=== PATIENT | male | born 1985 | race Caucasian/White ===

== ENCOUNTER 2020-12-18 09:15 | Outpatient (RCR) | payer BC, SELFPAY ==
[2020-11-04 12:44] VITALS: BMI 22.5
[2020-11-04 12:45] VITALS: BMI 22.5
== END 2021-01-19 14:40 | disposition home or self-care (01) ==
LOC: ANHDMC 09:15
PROVIDERS: PCP Nurse Practitioner Adult Health; Visit Provider Nurse Practitioner Adult Health
DX: E11.9 Type 2 diabetes mellitus without complications (principal); Z71.3 Dietary counseling and surveillance; Z71.89 Other specified counseling
CPT/HCPCS: 97802; 99283; G0108

== ENCOUNTER 2021-05-05 14:15 | Outpatient (RCR) | payer BC, SELFPAY | END 2021-05-11 11:57 | disposition home or self-care (01) | LOC: ANHDMC 14:15 | PROVIDERS: PCP Nurse Practitioner Adult Health; Visit Provider Nurse Practitioner Adult Health | DX: E11.9 Type 2 diabetes mellitus without complications (principal); Z71.89 Other specified counseling | CPT/HCPCS: G0108 ==

== ENCOUNTER 2021-06-25 14:16 | Outpatient (RCR) | payer BC, SELFPAY | END 2021-06-26 08:57 | disposition home or self-care (01) | LOC: ANHDMC 14:16 | PROVIDERS: PCP Nurse Practitioner Adult Health; Visit Provider Nurse Practitioner Adult Health | DX: E11.9 Type 2 diabetes mellitus without complications (principal); Z71.89 Other specified counseling | CPT/HCPCS: G0108 ==

== ENCOUNTER 2023-06-01 08:07 | Outpatient (CLI) | payer BC, SELFPAY ==
[2023-06-01 19:34] LABS: Creatinine Urine 102.4 mg/dL
[2023-06-01 19:36] LABS: MALB Creatinine Ratio 7.6 mg/g (0-30); Microalbumin Urine Random 7.8 mg/L (0-16.7)
[2023-06-01 19:52] LABS: Alanine Aminotransferase 27 U/L (6-50); Albumin Level 4.4 g/dL (3.5-5.1); Alkaline Phosphatase 51 U/L (38-126); Anion Gap 10 mmol/L (8-16); Aspartate Amino Transferase 42 U/L (17-59); Bilirubin,Total 1.1 mg/dL (0.2-1.3); Blood Urea Nitrogen 18 mg/dL (9-20); Calcium 9.7 mg/dL (8.4-10.2); Carbon Dioxide 26 mmol/L (22-30); Chloride 101 mmol/L (98-107); Cholesterol 155 mg/dL (0-200); Estimated Glomerular Filt Rate > 60; Glucose 68 mg/dL (65-110); HDL Direct 40 mg/dL; Potassium 4.3 mmol/L (3.4-5.0); Sodium 137 mmol/L (137-145); Triglycerides 47 mg/dL (<150)
[2023-06-01 20:03] LABS: LDL Cholesterol Direct 100 mg/dL
[2023-06-01 20:13] LABS: Hemoglobin A1C 5.3 % (<5.7)
== END 2023-06-01 08:08 | disposition home or self-care (01) ==
LOC: ANHGOSHLAB 08:08
PROVIDERS: PCP Family Medicine; Visit Provider Family Medicine
DX: E11.9 Type 2 diabetes mellitus without complications (principal); Z13.220 Encounter for screening for lipoid disorders; Z13.228 Encounter for screening for other metabolic disorders
CPT/HCPCS: 36415; 80053; 80061; 82043; 83036

== ENCOUNTER 2025-06-14 16:28 | Emergency (ER) | payer OTHER, SELFPAY ==
--- NOTE | ~2025-06-14 | XR_ITS ---
XR foot RT min 3V 06/14/2025 17:05 INDICATION: Right foot pain PROCEDURE: 4 views right foot COMPARISON: No prior studies for comparison. FINDINGS: Fracture, dislocation or subluxation is not identified. The soft tissues appear within normal limits. No foreign bodies are identified. IMPRESSION: 1: NO ACUTE BONE OR JOINT ABNORMALITY IDENTIFIED. Reviewed, dictated and finalized at location O.
[2025-06-14 16:45] VITALS: BP 132/94; PULSE 71; RESP 16; TEMP 36.5; O2SAT 100
--- NOTE | 2025-06-14 17:26 | ED.LOWEXIN ---
HPI - Extremity Injury (Lower) General Chief Complaint: Extremity Injury, Lower Stated Complaint: R FOOT PAIN Time Seen by Provider: 06/14/25 17:15 Source: patient and RN notes reviewed Mode of arrival: ambulatory Limitations: no limitations History of Present Illness HPI Narrative: 40-year-old male Presents Express Care complaining of right foot pain last 2 weeks. Patient denies any apparent injury. Patient says he has been running frequently over the last 3 years. Patient says he is currently training for a marathon. Patient denies any change in shoes. Patient states the pain is primarily on his heel and occurs when he is running or bearing weight to his right foot. Patient's has been taking Tylenol or ibuprofen with some relief. Patient denies any numbness, tingling or any other injuries. Patient denies any significant past medical history. Related Data Home Medications ?Medication ?Instructions ?Recorded ?Confirmed ?Last Taken ?Type metformin 500 mg tablet 500 mg PO DAILY 05/30/23 05/30/23 Unknown History Allergies Allergy/AdvReac Type Severity Reaction Status Date / Time No Known Allergies Allergy Verified 05/30/23 09:32 Review of Systems Review of Systems: CONSTITUTIONAL: Denies fever, chills, or sweats. EYES: Denies visual changes, redness, or discharge. ENT: Denies rhinorrhea, congestion, sore throat, or otalgia. CARDIOVASCULAR: Denies chest pain, palpitations, or edema. RESPIRATORY: Denies cough or dyspnea. GASTROINTESTINAL: Denies abdominal pain, nausea, vomiting, or diarrhea. GENITOURINARY: Denies dysuria or hematuria. SKIN: Denies rash, wound, or itching. MUSCULOSKELETAL: Denies back pain, joint pain, or myalgia. Positive for right foot pain NEUROLOGIC: Denies headache, numbness, or weakness. PSYCHIATRIC: Denies anxiety or depression. All other systems reviewed are negative, except as documented in HPI. 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 There is no relevant family history pertinent to the patient complaint. Exam Narrative: GENERAL: This is a well-nourished, well-developed adult, in no apparent distress. They are non ill-appearing, nontoxic appearing. HEAD: normocephalic, atraumatic. EYES: Sclera clear/white. Vision is grossly intact. Conjunctiva normal. Extraocular movement intact. EARS: External ears normal Hearing grossly intact. NOSE: External nose normal THROAT: Mucous membranes moist NECK: Neck supple CARDIOVASCULAR: Regular rate and rhythm RESPIRATORY: Respiratory rate normal, respiratory effort nonlabored, no respiratory distress NEURO: awake, alert, and oriented to person, place and time. There were no obvious focal neurologic abnormalities. EXTREMITIES: Right foot: No obvious deformity, injury, swelling, bruising, redness. Normal range of motion. No bony tenderness. Tenderness to palpation to plantar surface of the distal calcaneus. Capillary refill less than 3 seconds. Right pedal Pulse 2 +palpable. Normal sensation. Neurovascular status intact distal injury. Patient is able to wiggle his toes. Negative Rivas's test. BACK: Nontender without deformity. Course Course Emergency Course: Portions of this record may have been created with voice recognition software Level of Care: Express Care Visit Vital Signs Vital signs: Vital Signs Temperature 97.7 F 06/14/25 16:45 Pulse Rate 06/14/25 16:45 Respiratory Rate 06/14/25 16:45 Blood Pressure 132/94 H 06/14/25 16:45 Pulse Oximetry 06/14/25 16:45 Temperature 97.7 F 06/14/25 16:45 Pulse Rate 06/14/25 16:45 Respiratory Rate 06/14/25 16:45 Blood Pressure 132/94 H 06/14/25 16:45 Pulse Oximetry 06/14/25 16:45 Reviewed MDM - Extremity Injury (Lower) MDM Narrative Medical decision making narrative: X-ray of right foot negative for any fractures or acute findings. No bone spurs noted on imaging. Symptoms seem to be consistent with plantar fasciitis, could be a foot sprain. Recommend conservative therapy, good supportive shoes, arch support. Will give patient was the print cutter to follow-up with a pain is persisting. Discussed physical exam findings. Advised supportive measures and signs/symptoms to go to the ER. Pt is appropriate for outpt treatment and f/u. Differential Diagnosis Differential diagnosis: Likely other (Foot sprain, foot fracture, plantar fasciitis, ankle injury) Imaging Data Radiologist's impression: ITS Impressions Foot X-Ray 06/14/25 17:11 IMPRESSION: 1: NO ACUTE BONE OR JOINT ABNORMALITY IDENTIFIED. Critical Care Time Critical Care Time Critical Care Time: No Discharge Plan Discharge Clinical Impression: Acute pain of right foot Patient Disposition: Home Condition: Stable Instructions: Plantar Fasciitis (ED), Plantar Fasciitis Exercises (ED) Additional Instructions: X-ray right foot is negative for any fractures or acute findings. You may have plantar fasciitis. Rest and elevate the leg; bear weight as tolerated Wear good supportive shoes, consider using plantar fasciitis/arch supports soles for your shoes. Apply ice 15-20 minute intervals several times a day Keep it wrapped with RULA You may take ibuprofen 600 mg to 800 mg every 6-8 hours. Do not exceed more than 800 mg of ibuprofen per dose. Do not exceed more than 3200 mg ibuprofen in a day. You may take up to 1000 mg Tylenol every 6-8 hours. Do not exceed 1000 mg per dose, do exceed more than 4000 mg of Tylenol in a day. Follow up with your primary care provider or print cutter as needed in 1-2 weeks especially pain is persisting. A list of print cutter were given to you. Patient Language: Burkinan Prescriptions: No Action metformin 500 mg tablet 500 mg PO DAILY atorvastatin 10 mg tablet 10 mg PO DAILY Qty: 90 1RF Follow-up/Referrals: [facility] [Provider Group, Podiatry] [place] Valenzuela DPM [Physician, Podiatry] Skyler Thompson DPM [Physician, Podiatry] Rocio Ratliff DPM [Physician, Podiatry] Noah,Nir Dai DPM [Physician, Podiatry] PHYSICIAN,FLIGHT OPERATIONS INSPECTOR [Primary Care Provider, Internal Medicine] Time of Disposition: 17:23
== END 2025-06-14 17:45 | disposition home or self-care (01) ==
DX: M79.671 Pain in right foot (principal); Z98.52 Vasectomy status
CPT/HCPCS: 73630; 99213; G0463

== ENCOUNTER 2025-08-06 08:55 | Outpatient (CLI) | payer OTHER, SELFPAY ==
--- OUTSIDE RECORDS SUMMARY | 2025-08-06 09:41 | XMS_ITS | Clinical Summary ---
Author Organization [address] Address [address] [place] [id number] Care Team Providers Care [employer] Finisher Name Role Phone No, Physician Primary Care Provider [phone] Allergies No known active allergies Medications atorvastatin (LIPITOR) 10 mg tablet Take 1 tablet (10 mg total) by mouth nightly at bedtime 12/06/2022 Active atorvastatin calcium (ATORVASTATIN ORAL) 06/17/2020 Active metFORMIN (GLUCOPHAGE) 500 mg tablet Take 1 tablet (500 mg total) by mouth 2 (two) times a day 12/04/2022 Active metFORMIN (GLUCOPHAGE) 500 mg tablet 06/17/2020 Activ e Active Problems No known active problems Social History Tobacco Use Types Packs/Day Years Used Date Smoking Tobacco: Never Assessed Sex and Gender Information Value Date Recorded Sex Assigned at Not on file Legal Sex Male 6:21 PM CDT Gender Identity Not on file Sexual Orientation Not on file Last Filed Vital Signs Vital Sign Reading Time Taken Comments Blood Pressure 126/80 03/04/2023 8:29 AM CDT Pulse 78 03/04/2023 8:29 AM CDT Temperature 37.2 C (99 F) 03/04/2023 8:29 AM CDT Respiratory Rate 14 03/04/2023 8:29 AM CDT Oxygen Saturation 98% 03/04/2023 8:29 AM CDT Inhaled Oxygen Concentration - - Weight 76.5 kg (168 lb 11.2 oz) 03/04/2023 8:29 AM CDT Height 185.4 cm (6' 1) 03/04/2023 8:29 AM CDT Body Mass Index 22.26 03/04/2023 8:29 AM CDT Plan of Treatment Health Maintenance Due Date Last Done Comments Depression Screening 1985 Hepatitis C Screening 1985 DTaP/Tdap/Td Vaccine (1 - Tdap) 1996 Varicella Vaccines (1 of 2 - 13+ 2-dose series) 1998 Hepatitis B Screening 2003 Regular Well Visit/Exam 18-64 2003 HPV Vaccines (1 - 3-dose SCDM series) 2012 Covid-19 Vaccine (2024- season) 2025 07/19/2022, 08/29/2021, 12/23/2020, Additional history exists Influenza Vaccine (#1) 2025 2, 07/13/2021, 07/09/2020, Additional history exists Pneumococcal vaccine <65 Aged Out No longer eligible based on patient's age to complete this topic Insurance [facility] Care Teams Umbrella Finisher Relationship Specialty Start Date End Date No, Physician PCP - General 03/04/23
[2025-08-06 13:05] LABS: Hematocrit 45.8 % (42.0-52.0); Hemoglobin 14.6 g/dL (14.0-18.0); Immature Granulocyte Percent A 0.4 % (0-0.5); Lymphocytes Absolute Auto 1.65 K/mm3 (0.9-3.2); Mean Corpuscular HGB Conc 31.9 g/dl (32-36); Mean Corpuscular Hemoglobin 26.2 pg (26-34); Mean Corpuscular Volume 82.1 fl (80-100); Nucleated Red Blood Cells Absolute Auto 0.000 K/mm3 (0.0-0.012); Nucleated Red Blood Cells Perc 0.0 % (0.0-0.2); Platelet Count Result 255 k/mm3 (150-375); Red Blood Count 5.58 M/mm3 (4.6-6.20); White Blood Count 4.8 K/mm3 (4.5-10.0)
[2025-08-06 13:22] LABS: Alanine Aminotransferase 31 U/L (6-50); Albumin Level 4.6 g/dL (3.5-5.1); Aspartate Amino Transferase 71 U/L (17-59); Blood Urea Nitrogen 17 mg/dL (9-20); Carbon Dioxide 27 mmol/L (22-30); Estimated Glomerular Filt Rate > 60; Total Protein 7.1 g/dL (6.3-8.2)
[2025-08-06 13:34] LABS: Alkaline Phosphatase 56 U/L (38-126); Anion Gap 7 mmol/L (4-12); Bilirubin,Total 0.9 mg/dL (0.2-1.3); Calcium 9.5 mg/dL (8.4-10.2); Chloride 103 mmol/L (98-107); Cholesterol 174 mg/dL (0-200); Glucose 85 mg/dL (65-110); HDL Direct 45 mg/dL; Potassium 4.2 mmol/L (3.4-5.0); Sodium 137 mmol/L (137-145); Triglycerides 56 mg/dL (<150)
[2025-08-06 18:58] LABS: Hemoglobin A1C 5.6 % (<5.7)
== END 2025-08-06 08:56 | disposition home or self-care (01) ==
LOC: ANHGOSHLAB 08:55
PROVIDERS: PCP Nurse Practitioner; Visit Provider Nurse Practitioner
DX: E78.5 Hyperlipidemia, unspecified (principal); E11.9 Type 2 diabetes mellitus without complications
CPT/HCPCS: 36415; 80053; 80061; 83036; 85025